=== PATIENT | female | born 1965 | race Caucasian/White ===

== ENCOUNTER 2016-10-14 17:33 | Emergency (ER) | payer SELFPAY ==
[~2016-10-14] VITALS: Ht 162.6 cm; Wt 150.0 kg
[2016-10-14] MEDS ORDERED: HYDROCODONE/ACETAMINOPHEN 5/325MG TABLET PO STA (22:27)
[2016-10-15 00:40] VITALS: BP 134/83
== END 2016-10-15 00:40 | disposition home or self-care (01) ==
LOC: ER 17:37
DX: S00.93XA Contusion of unspecified part of head, initial encounter (principal); H10.213 Acute toxic conjunctivitis, bilateral; Y08.89XA Assault by other specified means, initial encounter; Y93.89 Activity, other specified; Y92.89 Other specified places as the place of occurrence of the external cause; Y99.8 Other external cause status
CPT/HCPCS: 70450; 70486; 72125; 81025; 99284

== ENCOUNTER 2022-12-11 09:32 | Emergency (ER) | payer SELFPAY ==
[~2022-12-11] VITALS: Ht 165.1 cm; Wt 105.0 kg
[2022-12-11 09:35] VITALS: O2SAT 99
[2022-12-11 10:50] VITALS: BP 137/88; PULSE 68; RESP 19; TEMP 98.2
== END 2022-12-11 10:52 | disposition home or self-care (01) ==
LOC: ER 09:32
DX: F41.0 Panic disorder [episodic paroxysmal anxiety] (principal); E11.9 Type 2 diabetes mellitus without complications; I10 Essential (primary) hypertension
CPT/HCPCS: 93005; 99283